=== PATIENT | female | born 1940 | race Caucasian/White ===

== ENCOUNTER 2016-09-09 07:33 | Day surgery (SDC) | payer MEDICARE ==
[~2016-09-09] VITALS: Ht 171.4 cm; Wt 61.2 kg
[~2016-09-09 07:33] MED LIST: 0.9% Sodium Chloride 1,000 ML IV SCH; CALC-78 PO; CALC166. PO; GLUC100016 PO; MULT-1018 PO; OMEG-38 PO; SERT50TA9 PO; Sodium Chloride LOK Flush 10 mL Syringe IV PRN; fentaNYL-PF 50 mCg/mL 2 mL Inj IVPUSH PRN
[2016-09-09 08:03] VITALS: BP 131/76; PULSE 55; RESP 16; O2SAT 97
[2016-09-09 09:35] VITALS: BP 140/66; PULSE 48; RESP 16; O2SAT 98
[2016-09-09 09:51] VITALS: BP 133/64; PULSE 52; RESP 16; O2SAT 96
--- NOTE | 2016-09-09 10:01 | ENDO ---
[address] [address] ENDOSCOPY PROCEDURE PATIENT: DENNISE LASSITER : 1940 MR#: [id number] ADMIT: 09/09/2016 JOB ID: [id number] DATE OF SERVICE: 09/09/2016 PROCEDURE PERFORMED: Colonoscopy. INDICATIONS: Screening. ASA CLASSIFICATION: The patient's ASA classification is I. MALLAMPATI SCORE: Mallampati score was 1. MEDICATIONS: 1. Versed 2 mg. 2. Fentanyl 50 mcg. INSTRUMENT USED: PCF-H180AL. PREPARATION QUALITY: Good. PROCEDURE DETAILS: After informed consent was obtained, the patient was brought into the GI suite, where she was placed on oxygen via nasal cannula and monitored with continuous pulse oximeter, telemetry, and blood pressure monitoring. A time-out was performed. Then, she was placed in the left lateral decubitus position and medications were administered for sedation. Digital rectal exam was performed which was unremarkable. The colonoscope was then inserted into the rectum and advanced under direct visualization to the cecum, which was identified by the presence of the ileocecal valve and appendiceal orifice. Once the cecum was reached, the colonoscope was withdrawn back into the rectum, as the mucosa and lumen were examined. In the rectum, retroflexion was performed. Following retroflexion, remaining air in the rectum was suctioned, and procedure was completed. FINDINGS: Normal exam from rectum to cecum. IMPRESSION: Normal colonoscopy. RECOMMENDATIONS: Repeat colonoscopy in 10 years, sooner if symptoms dictate. COMPLICATIONS: None. ESTIMATED BLOOD LOSS: Zero.
== END 2016-09-09 23:59 | disposition home or self-care (01) ==
LOC: END 07:33
PROVIDERS: ATTEND Internal Medicine Gastroenterology
DX: Z12.11 Encounter for screening for malignant neoplasm of colon (principal); M54.5 Low back pain; M54.32 Sciatica, left side; F33.9 Major depressive disorder, recurrent, unspecified; Z85.828 Personal history of other malignant neoplasm of skin; M19.90 Unspecified osteoarthritis, unspecified site
CPT/HCPCS: 99153; G0121; G0500; J2250; J3010; J7030